=== PATIENT | female | born 1955 | race Caucasian/White ===

== ENCOUNTER 2020-06-22 22:20 | Inpatient (IN) | payer BC, OTHER, SELFPAY ==
[2020-06-22 21:58] VITALS: BP 83/53; PULSE 78; RESP 18; TEMP 36.7; O2SAT 97
--- NOTE | 2020-06-22 22:03 | HP.PCM_ITS ---
Problem List (1) SHAN (acute kidney injury) Status: Acute History of Present Illness Date of Admission: 06/22/20 Chief Complaint: Lightheadness The patient is a 64 year old F with a significant history of right breast cancer on chemotherapy who presents to the emergency department to [facility] emergency department with lightheadedness. Her symptoms has been going on for about 1 week. Over the course of the 1 week she has also had some mild vertigo. Further she has had fatigue, malaise, nausea, and vomiting. She had diarrhea on previous days but on the day of presentation she had no diarrhea. Patient had her last chemotherapy June 11, 2020. Thereafter because she was feeling worn out she went to her infusion center and was given IV hydration on June 18, 2020. At emergency department at [facility] patient received normal saline bolus and maintenance normal infusion. Also received 40 mEq of potassium p.o. and 10 mEq IV because her potassium was 2.8. In route to our hospital patient received 500 mL of normal saline by paramedics since her systolic blood pressure was in the 80s. Past Medical History Medical History: Medical History (Last Reviewed 06/22/20 @ 23:[address] Nicolas Francisco MD) Hypertension I10 Home Medications: Ambulatory Orders Medication Instructions Recorded Lisinopril [Zestril] 10 mg PO DAILY 06/22/20 Omeprazole 20 mg PO DAILY 06/22/20 Ondansetron [Zofran Odt] 4 mg PO Q6H PRN PRN 06/22/20 Prochlorperazine Maleate 10 mg PO Q6H PRN PRN 06/22/20 [Compazine] Surgical History: hysterectomy, - - Teeth extraction Smoking Status: Current some day smoker Tobacco Use: Cigarettes - *Family History Maternal History Items: Cancer - Breast cancer, Heart Disease Paternal History Items: Diabetes, Heart Disease, Hypertension Review of Systems Constitutional: Reports: Anorexia, Fatigue. Denies: Chills, Fever, Weight Change HEENT: Denies: Head Aches, Sinus Congestion, Sinus Drainage Cardiovascular: Reports: Light Headedness. Denies: Chest Pain, Palpitations Respiratory: Denies: Cough, Shortness of breath at rest, Sputum production Gastrointestinal: Denies: Abdominal Pain, Nausea, Vomiting Genitourinary: Denies: Dysuria Musculoskeletal: Denies: Joint Pain, Joint Tenderness Skin: Denies: Rash, Wounds Neurological: Denies: Numbness, Tingling, Focal weakness Psychiatric: Denies: Anxiety, Depression, Homicidal Ideations, Suicidal Ideations Hematologic/ Lymphatic: Denies: Easy Bruising, Easy Bleeding VTE Information - Inpt Only VTE Present on Admission: No VTE Mechan Device Prophylaxis: None VTE Pharm Prophylaxis ordered?: Yes Patient Problems: Active and Suspected Problems (Last Updated 06/22/20 @ 22:[address] Nicolas Francisco MD) SHAN (acute kidney injury) (Acute) - Physical Exam General: Alert, Oriented x3, Cooperative HEENT: Atraumatic, PERRLA, EOMI, Normocephalic Neck: Supple, No JVD, Negative Carotid Bruits Lungs: Clear to auscultation, Normal air movement Cardiovascular: Regular rate, No murmurs Abdomen: Bowel Sounds Present, Soft, Non Tender, - - Jorge catheter in place Extremities: No edema, Capillary Refill Less than 3 Seconds Skin: No rashes, No breakdown Musculoskeletal: No Tenderness to Palpation of Joints or Extremities Neurological: Cranial nerves II-XII grossly intact Psych/Mental Status: Normal Affect, Appropriate Assessment/Plan All Active Problems (Last Updated 06/22/20 @ 22:[address] Nicolas Francisco MD) SHAN (acute kidney injury) (Acute) The patient is a 64 year old F with a significant history of right breast cancer on chemotherapy who presents emergency department to [facility] emergency department with lightheadedness;; vomiting and diarrhea and found to be hypotensive and with severely elevated BUN and creatinine. SHAN/dehydration Outside hospital labs include white count of 17.2; sodium of 128; chloride of 93. BUN/creatinine from outside hospital was 46/4.2. Reportedly from outside hospital records patient has normal baseline creatinine. Likely secondary to dehydration from nausea vomiting and diarrhea. Normal saline 1000 mL bolus x1 and then normal saline 150 mL's per hour. Trend CMP. Check magnesium and phosphate. Avoid nephrotoxic's. Hold home lisinopril. Urine electrolytes ordered. Ultrasound of bladder and kidneys. Nausea vomiting and diarrhea Likely secondary to chemotherapy Supportive treatment with IV fluids. Zofran IV as needed and Compazine IV as needed ordered. Change home Protonix p.o. to IV. Hypovolemic shock Blood pressure at outside hospital triage 72/50; heart rate 102. Subsequent blood pressure outside hospital 101/49. En-route to hospital reported history blood pressure was in the 80s. Normal saline bolus and infusion as above Hold home lisinopril Trend blood pressures. Urinary retention At outside hospital patient was having difficulty urinating so Jorge catheter was placed. Continue Jorge catheter for now. Right breast cancer On chemotherapy Follows up with Dr. Kavon Mancilla at outside hospital. DVT prophylaxis: Subcutaneous heparin ordered. Inpatient E&M: 07666 Init Hosp L3
[2020-06-22] MEDS: 0.9% Normal Saline 1,000 ML 999 ML IV (22:15)
[2020-06-22 22:24] VITALS: BMI 30.1
--- NOTE | 2020-06-22 22:32 | US_ITS ---
STUDY: RENAL ULTRASOUND - COMPLETE REASON FOR EXAM: Female, 64 years old. SHAN TECHNIQUE: Ultrasound evaluation of the kidneys was performed with real-time and static brady-scale imaging. COMPARISON: None. FINDINGS: RIGHT KIDNEY: Normal location of the right kidney, which is normal in size. The right kidney measures 11.7 cm x 5.4 cm x 6.2 cm. There is a normal cortex of the right kidney. The renal cortex measures 2.4 cm. There is no right renal mass or cyst. There are no right renal calculi. There is no right hydronephrosis. DISTAL RIGHT URETER: There is non-visualization of the distal right ureter. There is no demonstrated right ureterovesical junction calculus. There is no demonstrated right ureteral jet. LEFT KIDNEY: Normal location of the left kidney, which is normal in size. The left kidney measures 12.8 cm x 4.9 cm x 5.1 cm. There is a normal cortex of the left kidney. The renal cortex measures 1.5 cm. There is no left renal mass or cyst. There are no left renal calculi. There is no left hydronephrosis. DISTAL LEFT URETER: There is non-visualization of the distal left ureter. There is no demonstrated left ureterovesical junction calculus. There is no demonstrated left ureteral jet. BLADDER: A LI catheter is seen within the empty urinary bladder. US/Kidney and Bladder IMPRESSION: Normal ultrasound of the kidneys. Electronically Signed: Carmelo Wagner, at 15:38 EST , Service support ,
[2020-06-22 23:25] VITALS: BP 89/56; PULSE 75; RESP 18; TEMP 36.5; O2SAT 99
[2020-06-22] MEDS: 0.9% Normal Saline 1,000 ML 150 ML IV (23:27)
[2020-06-23 01:39] VITALS: BP 84/52; PULSE 81; RESP 16; TEMP 36.6; O2SAT 98
[2020-06-23 02:03] LABS: Urine Sodium 19 mmol/L (Not Establ.)
[2020-06-23 03:54] VITALS: BP 83/46; PULSE 73; RESP 16; TEMP 37; O2SAT 98
[2020-06-23] MEDS: 0.9% Normal Saline 1,000 ML 150 ML IV ×4 (04:03→23:01)
[2020-06-23 05:11] LABS: Absolute Lymphocyte Count 1.04 X10^3/uL (0.83-4.51); Absolute Neutrophil Count 14.2 X10^3/uL (2.0-7.7); Basophil# 0.05 X10^3/uL; Basophil% 0.3 % (0-1); Hematocrit 28.2 % (37-47); Hemoglobin 9.7 g/dL (12.0-15.0); Lymphocyte # 1.04 X10^3/ul (4.0); Lymphocyte % 6.2 % (19-41); Mean Corp Hgb Conc 34.4 g/dL (32-36); Mean Corpuscular Hgb 33.7 pg (27.0-32.0); Mean Corpuscular Volume 97.9 fL (81-99); Mean Platelet Vol. 9.5 fl (6.2-12.0); Monocyte% 8.3 % (0-10); NRBC Flagged by Analyzer 0 % (0-5); Neutrophil # 14.21 X10^3/uL (2.7-7.7); Platelet Count 188 K/mm3 (150-450); RBC Distribution Width CV 13.8 % (11.6-14.6); RBC Distribution Width SD 47.9 fl (35.1-43.9); Red Blood Count 2.88 M/mm3 (4.2-5.4); White Blood Count 16.9 K/mm3 (4.4-11.0)
[2020-06-23 05:34] LABS: ALB/GLOB Ratio 0.7 RATIO (0.9-2.4); AST(SGOT) 15 U/L (15-37); Alanine Aminotransfer ALT/SGPT 24 U/L (13-56); Albumin, Serum 2.3 g/dL (3.2-5.0); Alkaline Phosphatase 114 U/L (45-117); Anion Gap 8 (5-15); BUN 35 mg/dL (7-18); BUN/Creat Ratio 16.4 RATIO (10-20); Calcium,Total 7.6 mg/dL (8.5-10.1); Chloride 105 mmol/L (98-107); Creatinine, Serum 2.13 mg/dL (0.55-1.02); EST Glomerular Filtration Rate 25 mL/min (>60); Est Glom Filt Rate - Afr Amer 30 mL/min (>60); Estimated Creatinine Clearance 26.63 ml/min; Globulin 3.3 g/dL (2.2-4.2); Glucose 103 mg/dL (74-106); Magnesium 2.1 mg/dL (1.6-2.6); Phosphorus 3.1 mg/dL (2.5-4.9); Protein, Total 5.6 g/dL (6.4-8.2); Sodium Level 138 mmol/L (136-145)
[2020-06-23] MEDS: 0.9% Normal Saline 1,000 ML 999 ML IV ×2 (05:55→06:59)
[2020-06-23] MEDS: Heparin Injection (Vial) 5,000 UNIT/ML VIAL 5000 UNIT SC ×3 (05:56→21:36)
[2020-06-23 06:02] VITALS: BP 84/52; PULSE 82; RESP 16; TEMP 36.7; O2SAT 95
[2020-06-23 09:21] VITALS: BP 96/62; PULSE 89; RESP 16; TEMP 36.7; O2SAT 96
--- NOTE | 2020-06-23 09:57 | PN_ITS ---
Patient Problems: Active and Suspected Problems (Last Reviewed 06/22/20 @ 23:[address] Nicolas Francisco MD) SHAN (acute kidney injury) (Acute) Subjective: Ate pancakes and chocolate milk for breakfast and it came right back up after eating. Not nauseated until after she eats. Suggested she try more bland foods for lunch today. Asking if we can remove berman. Vitals/I&O's: Vital Signs Temp Pulse Resp BP Pulse Ox 98.1 F 89 16 96/62 96 06/23/20 09:21 06/23/20 09:21 06/23/20 09:21 06/23/20 09:21 06/23/20 09:21 Oxygen Flow Rate (L/min) 2 Oxygen Delivery Method Room Air Weight: 87.1 kg Body Mass Index (BMI) 30.0 Intake and Output for Last 24 Hours 06/21/20 06/22/20 06/23/20 23:59 23:59 23:59 Intake Total 1000 / 1160 2380 / 2380 Output Total 780 / 780 Balance 1000 / 1160 1600 / 1600 General: Alert, Oriented x3, Cooperative, No apparent distress, Well developed, Well nourished, - - Upper Middle Aged WF Lying in bed, appears comfortable, very pleasant HEENT: Atraumatic, PERRLA, EOMI, Normocephalic, EAC Clear Oral: Moist Mucosa, No Gingival or Mucosal Lesions/ Ulcerations Neck: Supple, Trachea Midline, Thyroid Normal Size and Texture Lungs: Clear to auscultation, Normal air movement, No rhonchi, No wheeze, No rales Cardiovascular: Regular rate, Regular Rhythm, Normal S1, Normal S2, No murmurs, No Ectopic Activity, No rub noted, No Gallop Abdomen: Bowel Sounds Present, Soft, Non Tender, Non-Distended, No Hepato- splenomegaly, No hernias noted Extremities: No clubbing, No cyanosis, No edema, Capillary Refill Less than 3 Seconds, Peripheral Pulses Normal Skin: No rashes Neurological: Cranial nerves II-XII grossly intact, Neuro grossly intact, - - neuropathy R LE Psych/Mental Status: Normal Affect, Appropriate Laboratory Results 06/23/20 01:40: Ur Random Sodium 19, Urine Creatinine 126.00 06/23/20 04:52: WBC 16.9 H, RBC 2.88 L, Hgb 9.7 L, Hct 28.2 L, MCV 97.9, MCH 33.7 H, MCHC 34.4, RDW Std Deviation 47.9 H, RDW Coeff of Eli 13.8, Plt Count 188, MPV 9.5, Immature Gran % (Auto) 1.200 H, Neut % (Auto) 84.0 H, Lymph % (Auto) 6.2 L, [place] % (Auto) 8.3, Eos % (Auto) 0.0, Baso % (Auto) 0.3, Absolute Neuts (auto) 14.2 H, Absolute Lymphs (auto) 1.04, Nucleated RBC % 0 06/23/20 04:52: Sodium 138, Potassium 3.0 L, Chloride 105, Carbon Dioxide 25.0, Anion Gap 8, BUN 35 H, Creatinine 2.13 H, Estim Creat Clear Calc 26.63, Est GFR (MDRD) Af Amer 30 L, Est GFR (MDRD) Non-Af 25 L, BUN/Creatinine Ratio 16.4, Glucose 103, Calcium 7.6 L, Phosphorus 3.1, Magnesium 2.1, Total Bilirubin 0.20, AST 15, ALT 24, Alkaline Phosphatase 114, Total Protein 5.6 L, Albumin 2.3 L, Globulin 3.3, Albumin/Globulin Ratio 0.7 L Current Medications Heparin Sodium (Porcine) (Heparin Injection (Vial) 5,000 Unit/Ml Vial) 5,000 unit SC Q8 [facility] Last Admin: 06/23/20 05:56 Dose: 5,000 unit Documented by: Sodium Chloride () 1,000 mls @ 150 mls/hr IV .Q6H40M [facility] Last Infusion: 06/23/20 05:55 Dose: Infused Documented by: Pantoprazole Sodium 40 mg/ (Sodium Chloride) 110 mls @ 330 mls/hr IV Q24 [facility] Last Admin: 06/23/20 09:35 Dose: 330 mls/hr Documented by: Melatonin (Melatonin 3 Mg Tablet) 3 mg PO QHS PRN PRN PRN Reason: INSOMNIA Ondansetron HCl (Ondansetron 4 Mg/2 Ml Vial) 4 mg IV Q6H PRN PRN PRN Reason: NAUSEA/VOMITING Prochlorperazine Edisylate (Prochlorperazine 10 Mg/2 Ml Vial) 5 mg IV Q4H PRN PRN PRN Reason: Breakthrough nausea/vomiting Prochlorperazine Maleate (Prochlorperazine 5 Mg Tablet) 10 mg PO Q4H PRN TRACI Sodium Chloride (0.9% Saline Lock 10 Ml Syringe) 10 - 40 ml IV UD PRN PRN Reason: SALINE FLUSH STROKE Vital Signs/Narrative: Vital Signs Temp Pulse Resp BP Pulse Ox 06/23/20 09:21 98.1 F 89 16 96/62 96 06/23/20 06:02 98.0 F 82 16 84/52 L 95 Medical Necessity - Tobacco Use Smoking Status: Current some day smoker Tobacco Use: Cigarettes Assessment/Plan All Active Problems (Last Reviewed 06/22/20 @ 23:[address] Nicolas Francisco MD) SHAN (acute kidney injury) (Acute) Intractable Nausea and Vomiting -has been problematic since shortly after last Chemo on 06/11 -did not have this problem as bad with last chemo -has been on zofran and Compazine at home -restart Compazine here and continue with Zofran -if the above do not work will trial Haldol--> low dose -continue IV hydration -did get outpt hydration per oncologist on 06/18 for same issue SHAN -unclear what baseline sCr is -2.13 today -continue IVF at 150 cc/hr -repeat lab in am -Luisito d/dequan -FeNa is 0.23% indicating severe dehydration -hold ACEI Hypotension -suspect hypovolemia related -continue IVF -per pt baseline SBP is about 110-120 -will trend Hypokalemia -replace IV 60 mEq today -mag is WNL -repeat im am Leukocytosis -suspect some reactive and some serum concentration with dehydration -will trend Anemia 2/2 Chemo -monitor -no s/o bleeding -expect drop further with hydration -CBC in am HTN -BP Low -hold med -on ACEI at baseline GERD -continue PPI -dose IV for now Breast Cancer -getting chemo -last dose was 06/11 -due again 07/02 -Onc is in [place] DVT prophylaxis -Heparin Code Status -Full Dispo -home once N/V controlled and pt able to take PO -?next 24-48 hrs Inpatient E&M: 19744 Subs Hosp L2
--- NOTE | 2020-06-23 11:09 | CASEMGMT ---
RN CM Assessment Note Introduced role of CM to patient in room. Demographics, PCP verified. patient states she lives in [place], and there were no beds available in neighboring hospitals so she was brought to [facility]. Pt states she lives alone in an apartment. She has 2 stepsons, one is contact. Patient states she is very independent, no care needs @ home. Has tiredness, no appetite after chemotherapy. Presentation: nausea, vomiting, fatigue, malaise. Current history of chemotherapy for breast cancer. Diagnosis: SHAN, Hypovolemic shock, urinary retention PCP: Dr. Cali Andrews Specialists: Dr. Burton, oncologist in [facility] Insurance: Corinne Preferred Pharmacy: [facility] in [place] Prescription Benefit: yes LNOK: Arun fuentes Living Arrangements: Lives independently in apartment. 1 step into apartment. When feeling well, pt states she does not require any help with ADL's or IADL's. She does not anticipate any needs on discharge. Tranportation: drives DME: Cpap only HHC: no history SNF: no history Patient DC Goals: home. States she is not sure how she will get home. RN CM discussed having family member pick her up as an ambulance/ambulette ride to [place] would be very expensive and self pay as there would not be medical necessity. DC Plan: Home on discharge. CM available for discharge planning coordination. Contact CM for any concerns/needs that may arise. Kailey CHINO RN ACM
[2020-06-23 13:07] LABS: Anion Gap 9 (5-15); BUN 25 mg/dL (7-18); BUN/Creat Ratio 15.6 RATIO (10-20); Calcium,Total 7.8 mg/dL (8.5-10.1); Chloride 111 mmol/L (98-107); EST Glomerular Filtration Rate 35 mL/min (>60); Est Glom Filt Rate - Afr Amer 42 mL/min (>60); Estimated Creatinine Clearance 35.45 ml/min; Glucose 91 mg/dL (74-106); Potassium 3.5 mmol/L (3.5-5.1); Sodium Level 142 mmol/L (136-145)
[2020-06-23 14:17] VITALS: BP 103/62; PULSE 78; RESP 16; TEMP 36.8; O2SAT 98
[2020-06-23] MEDS: Menthol/Lanolin/Calamine/Znox 113 GM Tube 1 APPLIC TOPICAL ×2 (14:23→21:37)
[2020-06-23 20:17] VITALS: BP 107/67; PULSE 84; RESP 18; TEMP 37.2; O2SAT 95
[2020-06-24 02:20] VITALS: BP 117/72; PULSE 81; RESP 18; TEMP 37; O2SAT 97
[2020-06-24] MEDS: Heparin Injection (Vial) 5,000 UNIT/ML VIAL 5000 UNIT SC (05:28)
[2020-06-24] MEDS: proCHLORPERazine 5 MG Tablet 10 MG PO ×2 (05:32→05:33)
[2020-06-24] MEDS: 0.9% Normal Saline 1,000 ML 150 ML IV (05:32)
[2020-06-24 06:44] LABS: Absolute Lymphocyte Count 1.36 X10^3/uL (0.83-4.51); Absolute Neutrophil Count 11.7 X10^3/uL (2.0-7.7); Basophil# 0.04 X10^3/uL; Basophil% 0.3 % (0-1); Eosinophil# 0.01 X10^3/uL; Eosinophils% 0.1 % (0-5); Hematocrit 29.2 % (37-47); Hemoglobin 10.1 g/dL (12.0-15.0); Lymphocyte # 1.36 X10^3/ul (4.0); Lymphocyte % 9.4 % (19-41); Mean Corp Hgb Conc 34.6 g/dL (32-36); Mean Corpuscular Hgb 34.5 pg (27.0-32.0); Mean Corpuscular Volume 99.7 fL (81-99); Mean Platelet Vol. 9.8 fl (6.2-12.0); Monocyte# 1.07 X10^3/uL; Monocyte% 7.4 % (0-10); NRBC Flagged by Analyzer 0 % (0-5); Neutrophil # 11.74 X10^3/uL (2.7-7.7); Neutrophil % 81.5 % (47-70); Platelet Count 171 K/mm3 (150-450); RBC Distribution Width CV 14.3 % (11.6-14.6); Red Blood Count 2.93 M/mm3 (4.2-5.4); White Blood Count 14.4 K/mm3 (4.4-11.0)
[2020-06-24 07:07] LABS: Anion Gap 6 (5-15); BUN 13 mg/dL (7-18); BUN/Creat Ratio 13.1 RATIO (10-20); Calcium,Total 7.8 mg/dL (8.5-10.1); Chloride 115 mmol/L (98-107); EST Glomerular Filtration Rate 60 mL/min (>60); Est Glom Filt Rate - Afr Amer 73 mL/min (>60); Estimated Creatinine Clearance 56.72 ml/min; Glucose 89 mg/dL (74-106); Potassium 3.2 mmol/L (3.5-5.1); Sodium Level 143 mmol/L (136-145)
[2020-06-24 07:26] VITALS: O2SAT 92
[2020-06-24 08:32] VITALS: BP 137/93; PULSE 94; RESP 16; TEMP 36.7; O2SAT 97
[2020-06-24] MEDS: Menthol/Lanolin/Calamine/Znox 113 GM Tube 1 APPLIC TOPICAL (11:00)
--- NOTE | 2020-06-24 12:13 | DCINST_ITS ---
- Discharge Diagnoses Current Active Problems: Current Active and Chronic Problems (Last Reviewed 06/22/20 @ 23:[address] Nicolas Francisco MD) SHAN (acute kidney injury) (Acute) You will use the following diet at home:: No restrictions Your food should be the consistency of: Regular Your liquids should be the consistency of: Regular/Thin Discharge Activity: Return to Normal Activity Allergies/Adverse Reactions: Allergies Tetracyclines Allergy (Verified 06/22/20 22:04) Hives Medications to take at Discharge Lisinopril [Zestril] 10 mg PO DAILY 06/22/20 Ondansetron [Zofran Odt] 4 mg PO Q6H PRN PRN 06/22/20 Prochlorperazine Maleate [Compazine] 10 mg PO Q6H PRN PRN 06/22/20 Pantoprazole Sodium [Protonix] 40 mg PO DAILY #30 tab 06/24/20 The following prescriptions were given: Pantoprazole Sodium [Protonix] 40 mg PO DAILY #30 tab Transmission Status: Pending to [facility] #[id number] Primary Care Physician: Cali Andrews [Other] Please follow up with your Primary Care Physician in: 1-2 Weeks Test Results: Test results from this visit will be discussed in further detail at your follow- up appointment, if applicable. Please Follow Up With: Oncologist When: as scheduled
--- NOTE | 2020-06-24 12:15 | PCM.DC.SUM ---
Discharge Date and Diagnosis - Problem List Patient Problems: Active and Suspected Problems (Last Reviewed 06/22/20 @ 23:[address] Nicolas Francisco MD) SHAN (acute kidney injury) (Acute) Date of Admission: 06/22/20 Date of Discharge: 06/24/20 - Primary Discharge Diagnosis Acute Problems: Active Problems (Last Reviewed 06/22/20 @ 23:[address] Nicolas Francisco MD) SHAN (acute kidney injury) (Acute) Hospital Course and Treatment Imaging Results: NONE NONE Operations: None Procedures: None Summary of Care Provided: Ms Larkin is a 64 year old F with a PMH of right breast cancer who is on chemotherapy. She presented to the ED at [facility] with lightheadedness. She had been experiencing these symptoms for about 1 week prior to presentation. She also had fatigue, malaise, nausea, and vomiting. She had diarrhea on previous days but on the day of presentation she had no diarrhea. Her last chemotherapy June 11, 2020 and she was given IV hydration on June 18, 2020 by her oncologist for similar issues. In emergency department at [facility] patient received normal saline bolus and maintenance normal infusion and 40 mEq of potassium p.o. and 10 mEq IV because her potassium was 2.8. In route to our hospital patient received 500 mL of normal saline by paramedics since her systolic blood pressure was in the 80s. She was admitted to the [facility] and monitored. She was placed on Compazine and Zofran and given IVF. Her sCr on admission here was 2.13 and on the day of discharge was 1.0. She was continued on her home meds and given protonix x 1 month supply at d/c as she felt this too helped her. She was tolerating a PO diet with out issues for > 12 hrs prior to discharge. She is to f/u with her PCP in 1-2 weeks and her oncologist as scheduled. Discharge Dx Intractable Nausea and Vomiting-resolved SHAN-resolved Hypotension-resolved Hypokalemia Leukocytosis Anemia 2/2 Chemo HTN GERD Breast Cancer Discharge Time > 35' Patient Problems: Active and Suspected Problems (Last Reviewed 06/22/20 @ 23:[address] Nicolas Francisco MD) SHAN (acute kidney injury) (Acute) - Physical Exam Vitals/I&O's: Vital Signs Temp Pulse Resp BP Pulse Ox 98.0 F 94 16 137/93 H 97 06/24/20 08:32 06/24/20 08:32 06/24/20 08:32 06/24/20 08:32 06/24/20 08:32 Oxygen Flow Rate (L/min) 2 Oxygen Delivery Method Room Air Weight: 87.1 kg Body Mass Index (BMI) 30.0 Intake and Output for Last 24 Hours 06/22/20 06/23/20 06/24/20 23:59 23:59 23:59 Intake Total 1000 / 1160 5490 / 5490 977.5 / 977.5 Output Total 2155 / 2155 500 / 500 Balance 1000 / 1160 3335 / 3335 477.5 / 477.5 General: Alert, Oriented x3, Cooperative, No apparent distress HEENT: Atraumatic, Normocephalic Oral: Moist Mucosa, No Gingival or Mucosal Lesions/ Ulcerations Neck: Supple, Trachea Midline Lungs: Clear to auscultation, Normal air movement, No rhonchi, No wheeze, No rales Cardiovascular: Regular rate, Regular Rhythm, Normal S1, Normal S2, No murmurs, No Ectopic Activity, No rub noted, No Gallop Abdomen: Bowel Sounds Present, Soft, Non Tender, Non-Distended, No Hepato-splenomegaly, No hernias noted Extremities: No clubbing, No cyanosis, No edema, Capillary Refill Less than 3 Seconds, Peripheral Pulses Normal Skin: No rashes, No breakdown Musculoskeletal: No Tenderness to Palpation of Joints or Extremities, No Muscle Wasting, Arthritic Changes Lymphatic: No Cervical, Supraclavicular, or Inguinal Adenopathy Neurological: Cranial nerves II-XII grossly intact, Neuro grossly intact Psych/Mental Status: Normal Affect, Appropriate Laboratory Results 06/23/20 12:30: Sodium 142, Potassium 3.5, Chloride 111 H, Carbon Dioxide 22.0, Anion Gap 9, BUN 25 H, Creatinine 1.60 H, Estim Creat Clear Calc 35.45, Est GFR (MDRD) Af Amer 42 L, Est GFR (MDRD) Non-Af 35 L, BUN/Creatinine Ratio 15.6, Glucose 91, Calcium 7.8 L 06/24/20 06:15: WBC 14.4 H, RBC 2.93 L, Hgb 10.1 L, Hct 29.2 L, MCV 99.7 H, MCH 34.5 H, MCHC 34.6, RDW Std Deviation 51.0 H, RDW Coeff of Eli 14.3, Plt Count 171, MPV 9.8, Immature Gran % (Auto) 1.300 H, Neut % (Auto) 81.5 H, Lymph % (Auto) 9.4 L, [place] % (Auto) 7.4, Eos % (Auto) 0.1, Baso % (Auto) 0.3, Absolute Neuts (auto) 11.7 H, Absolute Lymphs (auto) 1.36, Nucleated RBC % 0 06/24/20 06:15: Sodium 143, Potassium 3.2 L, Chloride 115 H, Carbon Dioxide 22.0, Anion Gap 6, BUN 13, Creatinine 1.00, Estim Creat Clear Calc 56.72, Est GFR (MDRD) Af Amer 73, Est GFR (MDRD) Non-Af 60, BUN/Creatinine Ratio 13.1, Glucose 89, Calcium 7.8 L Current Medications Calamine/Phenol (Menthol/Lanolin/Calamine/Znox 113 Gm Tube) 1 applic TOPICAL BID [facility]; Protocol Last Admin: 06/24/20 11:00 Dose: 1 applicatio Documented by: Heparin Sodium (Porcine) (Heparin Injection (Vial) 5,000 Unit/Ml Vial) 5,000 unit SC Q8 [facility] Last Admin: 06/24/20 05:28 Dose: 5,000 unit Documented by: Sodium Chloride () 1,000 mls @ 150 mls/hr IV .Q6H40M [facility] Last Admin: 06/24/20 05:32 Dose: 150 mls/hr Documented by: Pantoprazole Sodium 40 mg/ (Sodium Chloride) 110 mls @ 330 mls/hr IV Q24 [facility] Last Admin: 06/24/20 11:00 Dose: 330 mls/hr Documented by: Melatonin (Melatonin 3 Mg Tablet) 3 mg PO QHS PRN PRN PRN Reason: INSOMNIA Ondansetron HCl (Ondansetron 4 Mg/2 Ml Vial) 4 mg IV Q6H PRN PRN PRN Reason: NAUSEA/VOMITING Prochlorperazine Maleate (Prochlorperazine 5 Mg Tablet) 10 mg PO Q4H PRN [facility] Last Admin: 06/24/20 05:33 Dose: 10 mg Documented by: Sodium Chloride (0.9% Saline Lock 10 Ml Syringe) 10 - 40 ml IV UD PRN PRN Reason: SALINE FLUSH Discharge Activity: Return to Normal Activity Home Medications: Medications to take at Discharge Lisinopril [Zestril] 10 mg PO DAILY 06/22/20 Ondansetron [Zofran Odt] 4 mg PO Q6H PRN PRN 06/22/20 Prochlorperazine Maleate [Compazine] 10 mg PO Q6H PRN PRN 06/22/20 Pantoprazole Sodium [Protonix] 40 mg PO DAILY #30 tab 06/24/20 Following Prescriptions Were Given to Patient: Pantoprazole Sodium [Protonix] 40 mg PO DAILY #30 tab Transmission Status: Pending to [facility] #[id number] Primary Care Physician: Cali Andrews [Other] Please follow up with your Primary Care Physician in: 1-2 Weeks Please Follow Up With: Oncologist When: as scheduled Medical Necessity - Tobacco Use Smoking Status: Current some day smoker Tobacco Use: Cigarettes Meaningful Use Info Meaningful Use Diagnoses (Choose all that apply): None applicable Inpatient E&M: 46003 Disch Hosp
[2020-06-24 13:28] VITALS: BP 130/87; PULSE 81; RESP 16; TEMP 36.9; O2SAT 100
--- NOTE | 2020-06-24 14:21 | CASEMGMT ---
Social Work Note SW updated that pt has no transportation home. Pt doesn't need wheelchair van or ambulance transportation due to not having any medical necessity, both would be private pay. Base rate for wheelchair van is $60 and then $6 a loaded mile. Private Pay for ambulance is $575 base rate and then $17.50 per mile. SW in to speak with pt. SW introduced self and role at [facility]. SW updated pt on private pay costs for wheelchair van and ambulance. Pt states it isn't fair that I had to come all the way down here because no where else had beds for me and now I have to pay for my own ride home. Pt states her family all works, (SW updated that pt stated her family works from 3:00pm-11:00pm) and unable to transport pt. SW explained that pt could call a taxi. Pt states she has no money to pay for taxi. SW informed pt that this worker will look into options for transportation home. OJ placed a call to [facility] Hospital van and spoke with Cat. Cat states normally they would be able to transport pt but they have nothing available today. OJ placed a call to senior asset manager Jacki Mittal. OJ spoke with Jacki regarding situation, Jacki states to arrange taxi for pt and [facility] will pay for pt's ride home via hospital voucher. OJ placed a call to [employer] and arranged transportation. OJ informed [employer] [facility] that [facility] will use voucher to pay for transportation. [employer] to arrive to [facility] within the half hour to transport pt home. RN updated. OJ back in to speak with pt. SW updated pt that taxi has been arranged and [facility] will pay for taxi cab and taxi will be at [facility] within the half hour. Pt states appreciation, thanked this worker. Pt denied additional needs or concerns. Georgina Roa CAR COOPER, F[employer]ERGL[employer] LAMINATOR
== END 2020-06-24 14:48 | disposition home or self-care (01) | DRG 682 ==
PROVIDERS: Admitting Provider Hospitalist; Visit Provider Internal Medicine
DX: N17.9 Acute kidney failure, unspecified (principal); R57.1 Hypovolemic shock; E86.0 Dehydration; E87.6 Hypokalemia; C50.911 Malignant neoplasm of unspecified site of right female breast; D64.81 Anemia due to antineoplastic chemotherapy; T45.1X5A Adverse effect of antineoplastic and immunosuppressive drugs, initial encounter; R11.2 Nausea with vomiting, unspecified; I10 Essential (primary) hypertension; R33.9 Retention of urine, unspecified; K21.9 Gastro-esophageal reflux disease without esophagitis; F17.210 Nicotine dependence, cigarettes, uncomplicated; Z79.899 Other long term (current) drug therapy
CPT/HCPCS: 36415; 76770; 80048; 80053; 82570; 83735; 84100; 84300; 85025; 97162; 97166; J7030